=== PATIENT | male | born 1975 | race Caucasian/White ===

== ENCOUNTER 2020-11-14 00:40 | Emergency (ER) | payer BC, MEDICAID ==
[~2020-11-14] VITALS: Ht 188 cm; Wt 145.0 kg
[2020-11-14] MEDS ORDERED: meclizine 12.5mg tablet PO ONE (01:20)
[2020-11-14] MEDS ORDERED: aspirin 81mg tab.chew PO ONE (01:20)
[2020-11-14 01:48] VITALS: BP 144/81
[2020-11-14 01:49] LABS: BASOPHILS % (AUTO) 0.5 % (0-1); EOSINOPHILS # (AUTO) 0.2 X10'3 (0-0.9); EOSINOPHILS % (AUTO) 2.9 % (0-6); HEMATOCRIT 37.1 % (42.0-52.0); HEMOGLOBIN 12.7 g/dl (14.0-17.9); LYMPHOCYTES # (AUTO) 2.4 X10'3 (1.1-4.8); LYMPHOCYTES % (AUTO) 34.8 % (21-51); MEAN CORPUSCULAR HEMOGLOBIN 29.7 PG (27.0-31.0); MEAN CORPUSCULAR HGB CONC 34.1 g/dL (33.0-36.5); MEAN CORPUSCULAR VOLUME 87.1 FL (78-98); MEAN PLATELET VOLUME 7.6 FL (7.4-10.4); MONOCYTES # (AUTO) 0.5 X10'3 (0-0.9); NEUTROPHILS # (AUTO) 3.8 X10'3 (1.8-7.7); NEUTROPHILS % (AUTO) 54.8 % (42-75); PLATELET COUNT 179 X10'3 (140-440); RED BLOOD COUNT 4.25 X10'6 (4.70-6.10); RED CELL DISTRIBUTION WIDTH 13.4 % (11.5-14.5); WHITE BLOOD COUNT 6.9 X10'3 (4.5-11.0)
[2020-11-14 01:59] LABS: D-DIMER 0.31 MG/L FEU (0-0.50)
[2020-11-14 02:02] LABS: ALANINE AMINOTRANSFERASE 39 U/L (12-78); ALBUMIN 3.7 G/DL (3.4-5.0); ALBUMIN/GLOBULIN RATIO 0.9 (1.1-1.5); ALKALINE PHOSPHATASE 90 IU/L (46-116); ANION GAP 11 (8-16); ASPARTATE AMINO TRANSFERASE 32 U/L (10-37); BILIRUBIN,TOTAL 0.4 MG/DL (0.1-1.0); BLOOD UREA NITROGEN 9 MG/DL (7-18); CALCIUM 8.9 MG/DL (8.5-10.1); CHLORIDE 101 MMOL/L (99-107); CREATININE 0.75 MG/DL (0.60-1.10); GLUCOSE 102 MG/DL (70-104); MAGNESIUM 1.8 MG/DL (1.5-2.4); POTASSIUM 3.2 MMOL/L (3.5-5.1); SODIUM 137 MMOL/L (135-145); TOTAL CARBON DIOXIDE 25.3 MMOL/L (24-32); eGFR > 90 ML/MIN
[2020-11-14] MEDS ORDERED: magnesium oxide 400mg tablet PO ONE (02:25)
[2020-11-14] MEDS ORDERED: potassium Cl 20 mEq SR tablet PO ONE ×2 (02:25→02:40)
[2020-11-14] MEDS ORDERED: MECL-226 PO (02:26)
== END 2020-11-14 02:45 | disposition home or self-care (01) ==
LOC: ER 00:43
DX: R42 Dizziness and giddiness (principal); R06.02 Shortness of breath; R22.41 Localized swelling, mass and lump, right lower limb; I10 Essential (primary) hypertension; E11.9 Type 2 diabetes mellitus without complications; Z79.899 Other long term (current) drug therapy
CPT/HCPCS: 36415; 71045; 80053; 83735; 84484; 85025; 85379; 85610; 93005; 99285; J8597

== ENCOUNTER 2021-03-12 11:32 | Day surgery (SDC) | payer BC, MEDICAID ==
[2021-03-07 15:32] LABS: BASOPHILS % (AUTO) 0.6 % (0-1); EOSINOPHILS # (AUTO) 0.2 X10'3 (0-0.9); EOSINOPHILS % (AUTO) 3.9 % (0-6); HEMATOCRIT 36.5 % (42.0-52.0); HEMOGLOBIN 12.4 g/dl (14.0-17.9); LYMPHOCYTES # (AUTO) 1.4 X10'3 (1.1-4.8); LYMPHOCYTES % (AUTO) 25.8 % (21-51); MEAN CORPUSCULAR HEMOGLOBIN 30.1 PG (27.0-31.0); MEAN CORPUSCULAR VOLUME 88.4 FL (78-98); MEAN PLATELET VOLUME 7.6 FL (7.4-10.4); MONOCYTES # (AUTO) 0.5 X10'3 (0-0.9); MONOCYTES % (AUTO) 8.2 % (2-12); NEUTROPHILS # (AUTO) 3.4 X10'3 (1.8-7.7); NEUTROPHILS % (AUTO) 61.5 % (42-75); PLATELET COUNT 173 X10'3 (140-440); RED BLOOD COUNT 4.12 X10'6 (4.70-6.10); RED CELL DISTRIBUTION WIDTH 13.1 % (11.5-14.5); WHITE BLOOD COUNT 5.5 X10'3 (4.5-11.0)
[2021-03-07 15:42] LABS: ALBUMIN 3.4 G/DL (3.4-5.0); ANION GAP 8 (8-16); BLOOD UREA NITROGEN 11 MG/DL (7-18); BUN/CREATININE RATIO 15.5 (5.4-32.0); CALCIUM 8.5 MG/DL (8.5-10.1); CHLORIDE 103 MMOL/L (99-107); CREATININE 0.71 MG/DL (0.60-1.10); GLUCOSE 149 MG/DL (70-104); POTASSIUM 4.1 MMOL/L (3.5-5.1); SODIUM 139 MMOL/L (135-145); TOTAL CARBON DIOXIDE 27.7 MMOL/L (24-32); eGFR > 90 ML/MIN
[2021-03-07 15:50] LABS: PARTIAL THROMBOPLASTIN TIME 26 SECONDS (22-32)
[~2021-03-12] VITALS: Ht 185.4 cm; Wt 142.7 kg
[2021-03-12] VITALS (8 sets, daily range): BP systolic 121–148; BP diastolic 56–82
[~2021-03-12 11:32] MED LIST: MECL-226 PO
[2021-03-12] MEDS ORDERED: normal saline 1,000 ML IV SCH (11:50)
[2021-03-12] MEDS ORDERED: LORazepam 0.5 MG tablet PO PRN (11:50)
[2021-03-12] MEDS ORDERED: diphenhydrAMINE 25mg capsule PO PRN (11:50)
[2021-03-12] MEDS ORDERED: METF-900 PO (12:29)
[2021-03-12] MEDS ORDERED: DOCU-342 PO (12:29)
[2021-03-12] MEDS ORDERED: HYDR-3972 PO (12:29)
[2021-03-12] MEDS ORDERED: DULA0.75 SQ (12:29)
[2021-03-12] MEDS ORDERED: VARD20TA39 PO (12:29)
[2021-03-12] MEDS ORDERED: HYDR25TA5 PO (12:29)
[2021-03-12] MEDS ORDERED: IBUP-1985 PO (12:29)
[2021-03-12] MEDS ORDERED: PANT40TA54 PO (12:29)
[2021-03-12] MEDS ORDERED: LOSA50TA64 PO (12:29)
[2021-03-12] MEDS ORDERED: GABA-530 PO (12:29)
[2021-03-12] MEDS ORDERED: TEST5GEL19 (12:29)
[2021-03-12] MEDS ORDERED: ARMO250T6 PO (12:29)
[2021-03-12] MEDS ORDERED: ASPI-1397 PO (12:29)
[2021-03-12] MEDS ORDERED: BUPR-317 PO (12:29)
[2021-03-12] MEDS ORDERED: PRAV40TA3 PO (12:29)
[2021-03-12] MEDS ORDERED: CHOL100046 PO (12:30)
[2021-03-12] MEDS ORDERED: nitroGLYCERIN-Tridil 50MG/D5W 250 ML IV ONE (13:59)
[2021-03-12] MEDS ORDERED: midazolam 1 mg/ML 2ml injection ONE ×2 (13:59→15:10)
[2021-03-12] MEDS ORDERED: heparin 1,000unit/ml 10ml vial 10 ML ONE (13:59)
[2021-03-12] MEDS ORDERED: fentaNYL/PF 50MCG/1 ML 2ML syringe ONE (13:59)
[2021-03-12] MEDS ORDERED: verapamil 2.5 mg/ml inj IV ONE (13:59)
[2021-03-12] MEDS ORDERED: LIDOcaine 1% (10mg/ml)w/preservative injection 20ml MDV ONE (13:59)
[2021-03-12] MEDS ORDERED: iohexol 350MG/ML 100ml bottle IV ONE (14:00)
[2021-03-12] MEDS ORDERED: ondansetron/PF 4mg/2ml inj IV PRN (16:05)
[2021-03-12] MEDS ORDERED: OXAZEpam 15mg capsule PO PRN (16:10)
[2021-03-12] MEDS ORDERED: HYDROcodone/acetaminophen 5mg/325mg tablet PO PRN (16:10)
[2021-03-12] MEDS ORDERED: HYDROcodone/acetaminophen 10/325mg tab PO PRN (16:10)
[2021-03-12] MEDS ORDERED: proCHLORperazine 10 MG/2 ml inj IV PRN (16:10)
== END 2021-03-12 17:45 | disposition home or self-care (01) ==
LOC: SSTAY O 11:32
PROVIDERS: ATTEND Internal Medicine Interventional Cardiology
DX: R94.39 Abnormal result of other cardiovascular function study (principal); G47.33 Obstructive sleep apnea (adult) (pediatric); E11.9 Type 2 diabetes mellitus without complications; I10 Essential (primary) hypertension; E78.5 Hyperlipidemia, unspecified; Z79.899 Other long term (current) drug therapy; Z79.82 Long term (current) use of aspirin; Z79.84 Long term (current) use of oral hypoglycemic drugs; Z87.891 Personal history of nicotine dependence; Z79.01 Long term (current) use of anticoagulants
CPT/HCPCS: 36415; 80048; 82948; 85025; 85610; 85730; 93005; 93458; 99152; C1769; C1894; J1644; J2001; J2250; J3010; J7030; Q0163; Q9967; 99153; A4620; J3490

== ENCOUNTER 2022-03-17 21:18 | Emergency (ER) | payer BC, MEDICAID ==
[~2022-03-17] VITALS: Ht 185.4 cm; Wt 150.0 kg
[~2022-03-17 21:18] MED LIST changes: +ARMO250T6 PO; +ASPI-1397 PO; +BUPR-317 PO; +CHOL100046 PO; +DOCU-342 PO; +DULA0.75 SQ; +GABA-530 PO; +HYDR-3972 PO; +HYDR25TA5 PO; +IBUP-1985 PO; +LOSA50TA64 PO; -MECL-226 PO; +METF-900 PO; +PANT40TA54 PO; +PRAV40TA3 PO; +TEST5GEL19; +VARD20TA39 PO
[2022-03-17 22:40] LABS: CLARITY,URINE CLEAR (Clear); COLOR,URINE YELLOW (Yellow); GLUCOSE, URINE NEGATIVE (Neg); KETONES,URINE NEGATIVE (Neg); LEUKOCYTE ESTERASE ,URINE NEGATIVE (Neg); NITRITES, URINE NEGATIVE (Neg); OCCULT BLOOD,URINE NEGATIVE (Neg); PH,URINE 5.5 (4.8-8.0); PROTEIN,URINE NEGATIVE (Neg); UROBILINOGEN,URINE 0.2 E.U/dL (0.2-1.0)
[2022-03-17 22:41] LABS: BASOPHILS % (AUTO) 0.4 % (0-1); EOSINOPHILS # (AUTO) 0.2 X10'3 (0-0.9); EOSINOPHILS % (AUTO) 2.2 % (0-6); HEMATOCRIT 38.1 % (42.0-52.0); HEMOGLOBIN 13.5 g/dl (14.0-17.9); LYMPHOCYTES # (AUTO) 2.2 X10'3 (1.1-4.8); LYMPHOCYTES % (AUTO) 26.7 % (21-51); MEAN CORPUSCULAR HEMOGLOBIN 29.7 PG (27.0-31.0); MEAN CORPUSCULAR HGB CONC 35.4 g/dL (33.0-36.5); MEAN CORPUSCULAR VOLUME 83.9 FL (78-98); MEAN PLATELET VOLUME 7.4 FL (7.4-10.4); MONOCYTES # (AUTO) 0.6 X10'3 (0-0.9); MONOCYTES % (AUTO) 7.1 % (2-12); NEUTROPHILS # (AUTO) 5.3 X10'3 (1.8-7.7); NEUTROPHILS % (AUTO) 63.6 % (42-75); PLATELET COUNT 190 X10'3 (140-440); RED BLOOD COUNT 4.54 X10'6 (4.70-6.10); RED CELL DISTRIBUTION WIDTH 13.1 % (11.5-14.5); WHITE BLOOD COUNT 8.3 X10'3 (4.5-11.0)
[2022-03-17 22:42] LABS: UA COLLECTION TYPE CLN CATCH MIDSTREAM
[2022-03-17 22:55] LABS: ALANINE AMINOTRANSFERASE 80 U/L (12-78); ALBUMIN 3.4 G/DL (3.4-5.0); ALBUMIN/GLOBULIN RATIO 0.7 (1.1-1.5); ALKALINE PHOSPHATASE 99 IU/L (46-116); ANION GAP 5 (8-16); ASPARTATE AMINO TRANSFERASE 53 U/L (10-37); BILIRUBIN,TOTAL 0.4 MG/DL (0.1-1.0); BLOOD UREA NITROGEN 11 MG/DL (7-18); BUN/CREATININE RATIO 11.5 (5.4-32.0); CALCIUM 8.9 MG/DL (8.5-10.1); CHLORIDE 98 MMOL/L (99-107); CREATININE 0.96 MG/DL (0.60-1.10); GLUCOSE 235 MG/DL (70-104); POTASSIUM 4.1 MMOL/L (3.5-5.1); SODIUM 131 MMOL/L (135-145); TOTAL CARBON DIOXIDE 28.2 MMOL/L (24-32); TOTAL PROTEIN 8.6 G/DL (6.4-8.2); eGFR 85 ML/MIN
[2022-03-18 03:42] VITALS: BP 151/88
--- NOTE | 2022-03-18 03:56 | NUR ---
PT VERY HARD OF HEARING EVEN WITH HEARING AIDES IN PLACE. PT HR RISES SUBSTANTIALLY WHEN PT STANDS TO USE THE BEDSIDE CAMMODE. PT REFUSES TO USE URINAL DESPITE EDUCATION/REQUEST. PT HR IMMEDIATELY RETURNS TO APPROPRIATE RANGE ONCE HE IS BACK INTO BED. HOSPITALIST HAS BEEN MADE AWARE OF THE SITUATION.
== END 2022-03-18 04:09 | disposition home or self-care (01) ==
LOC: ER 21:19
DX: E11.65 Type 2 diabetes mellitus with hyperglycemia (principal); I10 Essential (primary) hypertension; Z79.899 Other long term (current) drug therapy; Z79.82 Long term (current) use of aspirin
CPT/HCPCS: 36415; 80053; 81003; 82948; 85025; 93005; 99284